=== PATIENT | female | born 1960 | race Two or more races ===

== ENCOUNTER 2016-08-27 16:15 | Emergency (ER) | payer OTHER ==
--- NOTE | 2016-08-27 16:41 | EDPHY ---
H & P Time Seen by Provider: 08/27/16 16:28 HPI/ROS: Chief complaint. Abdominal pain HPI. 55-year-old female presents emergency department with left lower quadrant abdominal pain and flank pain for 2 weeks. She was seen by her physician on Tuesday and they wanted to do a CT scan but it has not been performed yet. She had a normal urine at that point. No fever cough or shortness of breath. Pain is somewhat worse with movement but is there all the time especially with lying down at night. No fever chills. Nausea no vomiting. No diarrhea. Denies urinary symptoms. She has had her gallbladder removed. Otherwise no chronic abdominal problems ROS Constitutional. no fever/chills, no weakness Eyes. no problems with vision ENT. no sore throat, no nasal drainage Cardiovascular. no chest pain Respiratory. no shortness of breath, no cough Abdominal. Left lower quadrant abdominal pain with nausea . no problems urinating MS. no calf pain/swelling, no neck/back pain, no joint pain Skin. no rash Lymph. no swollen glands Neuro. no headache, no dizziness, no difficulty walking or with speech Past Medical/Surgical History: Cholecystectomy Social History: Single, nonsmoker, no alcohol Smoking Status: Never smoked Physical Exam: General Appearance: Alert pleasant well-developed female moderate distress vital signs are stable Eyes: Pupils equal and round no pallor or injection. ENT, Mouth: Mucous membranes are moist. Respiratory: There are no retractions, lungs are clear to auscultation. Cardiovascular: Regular rate and rhythm. Gastrointestinal: Abdomen is soft with left flank tenderness and left lower quadrant abdominal pain. No masses. Normal bowel sounds Neurological: Awake and alert, sensory and motor exams grossly normal. Skin: Warm and dry, no rashes. Musculoskeletal: Neck is supple nontender. Extremities symmetrical, full range of motion. Psychiatric: Patient is oriented X 3, there is no agitation. Constitutional: Initial Vital Signs Temperature (C) 36.8 C 08/27/16 16:24 Heart Rate 67 08/27/16 16:24 Respiratory Rate 20 08/27/16 16:24 Blood Pressure 167/69 H 08/27/16 16:24 O2 Sat (%) 97 08/27/16 16:24 O2 Delivery Mode Room Air O2 (L/minute) 2 Allergies/Adverse Reactions: No Known Allergies Allergy (Verified 08/27/16 16:24) Home Medications: Medication Instructions Recorded Hydrocodone/APAP 5/325 [[place] 1 each PO Q4-6PRN PRN #14 tab 08/27/16 5/325 (*)] Medical Decision Making - Diagnostics Imaging: CT abdomen and pelvis with IV contrast reviewed by me and discussed with Dr. Bonilla is interpreted as normal Procedures: IV normal saline. Morphine for pain. Zofran for nausea ED Course/Re-evaluation: Re-evaluation 7:15 p.m.. Patient is stable. The patient her daughters and I discussed imaging and lab results. We discussed treatment plan including criteria for return importance of follow-up and further evaluation. They expressed understanding and agreement Differential Diagnosis: I considered urinary tract infection, diverticulitis, colitis. Workup is normal including urine, laboratory, imaging studies. The exact cause of patient 's discomfort is unclear. We will treat the patient for pain. She is encouraged to return over the weekend should she be worse including fever, worsening pain, vomiting. She will follow up with her regular physician on Tuesday or Tuesday - Data Points Laboratory Results: Laboratory Results 08/27/16 17:20 08/27/16 17:20 08/27/16 08/27/16 08/27/16 17:50 17:50 17:20 WBC RBC Hgb POC Hgb 12.6 gm/dL gm/dL (12.3-15.9) Hct POC Hct 37 % % (35.5-47.5) MCV MCH MCHC RDW Plt Count MPV Neut % (Auto) Lymph % (Auto) Alfalfa % (Auto) Eos % (Auto) Baso % (Auto) Nucleat RBC Rel Count Absolute Neuts (auto) Absolute Lymphs (auto) Absolute Monos (auto) Absolute Eos (auto) Absolute Basos (auto) Absolute Nucleated RBC Immature Gran % Immature Gran # POC Sodium 143 mEq/L mEq/L (134-144) Sodium 141 mEq/L mEq/L (134-144) POC Potassium 3.5 mEq/L mEq/L (3.3-5.0) Potassium 4.0 mEq/L mEq/L (3.5-5.2) POC Chloride 108 mEq/L mEq/L (96-108) Chloride 105 mEq/L mEq/L (97-110) Carbon Dioxide 23 mEq/l mEq/l (22-31) Anion Gap 13 mEq/L mEq/L (8-16) POC BUN 18 mg/dL mg/dL (7-23) BUN 19 mg/dL mg/dL (7-23) Creatinine 0.6 mg/dL mg/dL (0.6-1.0) POC Creatinine 0.6 mg/dL mg/dL (0.6-1.2) Estimated GFR > 60 Glucose 93 mg/dL mg/dL (70-100) POC Glucose 91 mg/dL mg/dL (70-100) Calcium 9.6 mg/dL mg/dL (8.5-10.4) Urine Color COLORLESS Urine Appearance CLEAR Urine pH 6.0 (5.0-7.5) Ur Specific [place] 1.003 (1.002-1.030) Urine Protein NEGATIVE (NEGATIVE) Urine Ketones NEGATIVE (NEGATIVE) Urine Blood NEGATIVE (NEGATIVE) Urine Nitrate NEGATIVE (NEGATIVE) Urine Bilirubin NEGATIVE (NEGATIVE) Urine Urobilinogen NEGATIVE EU EU (0.2-1.0) Ur Leukocyte Esterase NEGATIVE (NEGATIVE) Ur Culture Indicated? NOT INDICATED (NI) Urine Glucose NEGATIVE (NEGATIVE) 08/27/16 17:20 WBC 6.49 10^3/uL 10^3/uL (3.80-9.50) RBC 4.88 10^6/uL 10^6/uL (4.18-5.33) Hgb 13.9 g/dL g/dL (12.6-16.3) POC Hgb Hct 42.1 % % (38.0-47.0) POC Hct MCV 86.3 fL fL (81.5-99.8) MCH 28.5 pg pg (27.9-34.1) MCHC 33.0 g/dL g/dL (32.4-36.7) RDW 13.7 % % (11.5-15.2) Plt Count 220 10^3/uL 10^3/uL (150-400) MPV 12.4 fL H fL (8.7-11.7) Neut % (Auto) 47.1 % % (39.3-74.2) Lymph % (Auto) 44.4 % % (15.0-45.0) Alfalfa % (Auto) 6.0 % % (4.5-13.0) Eos % (Auto) 1.5 % % (0.6-7.6) Baso % (Auto) 0.8 % % (0.3-1.7) Nucleat RBC Rel Count 0.0 % % (0.0-0.2) Absolute Neuts (auto) 3.06 10^3/uL 10^3/uL (1.70-6.50) Absolute Lymphs (auto) 2.88 10^3/uL 10^3/uL (1.00-3.00) Absolute Monos (auto) 0.39 10^3/uL 10^3/uL (0.30-0.80) Absolute Eos (auto) 0.10 10^3/uL 10^3/uL (0.03-0.40) Absolute Basos (auto) 0.05 10^3/uL 10^3/uL (0.02-0.10) Absolute Nucleated RBC 0.00 10^3/uL 10^3/uL (0-0.01) Immature Gran % 0.2 % % (0.0-1.1) Immature Gran # 0.01 10^3/uL 10^3/uL (0.00-0.10) POC Sodium Sodium POC Potassium Potassium POC Chloride Chloride Carbon Dioxide Anion Gap POC BUN BUN Creatinine POC Creatinine Estimated GFR Glucose POC Glucose Calcium Urine Color Urine Appearance Urine pH Ur Specific [place] Urine Protein Urine Ketones Urine Blood Urine Nitrate Urine Bilirubin Urine Urobilinogen Ur Leukocyte Esterase Ur Culture Indicated? Urine Glucose Medications Given: Discontinued Medications Sodium Chloride (Ns) 1,000 mls @ 0 mls/hr IV ONCE ONE PRN Reason: Wide Open Stop: 08/27/16 17:07 Last Admin: 08/27/16 17:25 Dose: 1,000 mls Morphine Sulfate (Morphine) 6 mg IVP EDNOW ONE Stop: 08/27/16 17:07 Last Admin: 08/27/16 17:25 Dose: 6 mg Ondansetron HCl (Zofran) 4 mg IVP EDNOW ONE Stop: 08/27/16 17:07 Last Admin: 08/27/16 17:25 Dose: 4 mg Point of Care Test Results: 08/27/16 17:50 POC Sodium 143 POC Potassium 3.5 POC Chloride 108 POC BUN 18 POC Creatinine 0.6 POC Glucose 91 Departure - Departure Disposition: Home, Routine, Self-Care Clinical Impression: Abdominal pain Qualifiers: Abdominal location: left lower quadrant Qualified Code(s): R10.32 - Left lower quadrant pain Condition: Good Instructions: Abdominal Pain (ED) Additional Instructions: Regular meals. Drink plenty of fluids and stay hydrated. Hydrocodone as needed for discomfort. Return over the weekend for worsening pain, fever, vomiting. Recheck Tuesday or Tuesday at [facility] for further evaluation Referrals: [facility] [Other] - 2-3 days without fail Prescriptions: Hydrocodone/APAP 5/325 [[place] 5/325 (*)] 1 each PO Q4-6PRN PRN #14 tab PRN Reason: Pain, Moderate
[2016-08-27] MEDS ORDERED: NS 1,000 ML IV ONE (17:06)
[2016-08-27] MEDS ORDERED: ONDANSETRON 4 MG/2 ML VIAL IVP ONE (17:06)
[2016-08-27 17:29] VITALS: O2SAT 96
[2016-08-27 17:46] LABS: % IMMATURE GRANULYOCYTES 0.2 % (0.0-1.1); ABSOLUTE IMMATURE GRANULOCYTES 0.01 10^3/uL (0.00-0.10); ADD DIFF? NO; ADD MORPH? NO; ADD SCAN? NO; ATYPICAL LYMPHOCYTE FLAG 0 (0-99); FRAGMENT RBC FLAG 0 (0-99); HEMATOCRIT 42.1 % (38.0-47.0); HEMOGLOBIN 13.9 g/dL (12.6-16.3); LEFT SHIFT FLG 0 (0-99); LIPEMIA HEMOLYSIS FLAG 80 (0-99); MEAN CELL HEMOGLOBIN 28.5 pg (27.9-34.1); MEAN CELL VOLUME 86.3 fL (81.5-99.8); MEAN PLATELET VOLUME 12.4 fL (8.7-11.7); PLATELET CLUMPS FLAG 0 (0-99); PLATELET COUNT 220 10^3/uL (150-400); RED BLOOD CELL COUNT 4.88 10^6/uL (4.18-5.33); RED CELL DISTRIBUTION WIDTH 13.7 % (11.5-15.2)
[2016-08-27 17:57] LABS: ANION GAP 13 mEq/L (8-16); CALCIUM 9.6 mg/dL (8.5-10.4); CARBON DIOXIDE 23 mEq/l (22-31); CHLORIDE 105 mEq/L (97-110); CREATININE 0.6 mg/dL (0.6-1.0); GLOMERULAR FILTRATION RATE > 60; GLUCOSE 93 mg/dL (70-100); SODIUM 141 mEq/L (134-144)
[2016-08-27] MEDS ORDERED: IOPAMIDOL (ISOVUE-300) 100 ML BTL IV ONE (18:13)
[2016-08-27 18:23] LABS: COLOR COLORLESS; LEUKOCYTE ESTERASE,URINE NEGATIVE (NEGATIVE); NITRITE,URINE NEGATIVE (NEGATIVE)
[2016-08-27 19:42] VITALS: BP 139/82; PULSE 69; RESP 16; TEMP 97.5
== END 2016-08-27 19:42 | disposition home or self-care (01) ==
DX: R10.32 Left lower quadrant pain (principal); Z90.49 Acquired absence of other specified parts of digestive tract
CPT/HCPCS: 82947-QW; J2405; Q9967

== ENCOUNTER 2017-08-01 10:07 | Emergency (ER) | payer OTHER ==
[2017-08-01] MEDS ORDERED: OXYCODONE/APAP 5/325 TAB ONE (10:40)
[2017-08-01] MEDS ORDERED: OXYCODONE/APAP 5/325 TAB PO ONE (10:41)
--- NOTE | 2017-08-01 10:42 | EDPHY ---
H & P Time Seen by Provider: 08/01/17 10:19 HPI/ROS: CHIEF COMPLAINT: Left ankle pain HISTORY OF PRESENT ILLNESS: 56-year-old female arrives via private vehicle complaining of acute left ankle pain after she slipped on ice this morning, complaining of lateral malleolus pain, unable to bear weight. Intact skin. PHYSICAL EXAM (Prior to examination, patient consented to physical exam, hands were washed and my usual and customary physical exam procedures followed) 1) GENERAL: Well-developed, well-nourished, alert and oriented. Appears to be in no acute distress. 2) HEAD: Normocephalic 3) HEENT: Pupils equal, round, reactive to light bilaterally. 4) LUNGS: Breathing comfortably. 5) MUSCULOSKELETAL: Soft tissue swelling, tender to palpation lateral malleolus. proximal tibia and fibula nontender .5th MT nontender negative Abbasi test, compartments soft 6) SKIN: Intact 7) VASCULAR: DP,PT pulses and cap refill present and brisk DIFFERENTIAL DIAGNOSIS: in no particular order including but not limited to fracture, sprain, compartment syndrome Procedure: Crutches indications for crutch use discussed with patient. Patient fitted for crutches by ER staff. Observed ambulating with crutches. I think the patient has the capacity to safely use crutches. Usual and customary crutch walking precautions provided Procedure: Splint A [place] boot splint was applied by ER phlebotomy technician. After application of the splint I returned and re-examined the patient. The splint was adequately immobilizing the joint and distal to the splint the patient's circulation and sensation were intact. Patient shows no signs of compartment syndrome. Was given orthopedic precautions. Smoking Status: Never smoked Constitutional: Initial Vital Signs Temperature (C) 37.0 C 08/01/17 10:15 Heart Rate 81 08/01/17 10:15 Respiratory Rate 18 08/01/17 10:15 Blood Pressure 168/90 H 08/01/17 10:15 O2 Sat (%) 97 08/01/17 10:15 O2 Delivery Mode Room Air Allergies/Adverse Reactions: No Known Allergies Allergy (Verified 08/27/16 16:24) Home Medications: Medication Instructions Recorded Hydrocodone/APAP 5/325 [[place] 1 tab PO Q6 PRN #7 tab 08/01/17 5/325 (RX)] Methocarbamol 08/01/17 MDM/Departure - [facility] Imaging Results: Imaging Impressions Ankle X-Ray 08/01/17 10:22 Impression: Acute nondisplaced distal fibular fracture. No derangement of the ankle mortise. Images were reviewed by myself Medications Given: Discontinued Medications Oxycodone/Acetaminophen (Percocet 5/325) 1 tab PO EDNOW ONE Stop: 08/01/17 10:42 Last Admin: 08/01/17 10:42 Dose: 1 tab ED Course/Re-evaluation: The patient was re-evaluated with serial examinations. Discussed her x-ray results showing a nondisplaced lateral malleolus fracture. She has been splinted with [place] boot, given crutches and crutch walking precautions and recommend orthopedic follow-up. She is neurovascular intact with no evidence of compartment syndrome at this time however she has been informed of the potential risks and red flag signs and symptoms to be on the look out for. She feels comfortable being discharged. She will be discharged with analgesia, work note and orthopedic referral information. She feels comfortable being discharged. Care of patient under supervision of secondary supervising physician Dr Jhonny Hunyh. - Depart Disposition: Home, Routine, Self-Care Clinical Impression: Fractured lateral malleolus Qualifiers: Encounter type: initial encounter Fracture type: closed Fracture alignment: nondisplaced Laterality: left Qualified Code(s): S82.65XA - Nondisplaced fracture of lateral malleolus of left fibula, initial encounter for closed fracture Condition: Good Instructions: Ankle Fracture (ED) Additional Instructions: Return to the ER immediately if you experience discoloration, have worsening pain, numbness, tingling, or any other symptoms that concern you. If you received x-rays in the emergency department today, be advised, that ligamentous , tendon, muscular, and other non-bony injury cannot be fully ruled out. Try to keep your affected extremity elevated above the level of your chest, and keep cold packs on the affected area, for the next 48 hours. Regresar a la vanessa de Emergencia inmediatamente si desarollas discoloracion, empeoramiento de dolor, entumido, hormigueo, u otros sintomas que te preocupan. Si recibistes prudencio-X en la vanessa de Emergencia hoy, ser reji informado, que ligamentos, tendones, musculos, u otras lastimaduras non-hueso no pueden ser completamente eliminadas. Tratar de tener cespedes extremidad afectada elevada mas arriba de tu pecho, y mantener bolsa de hielo a la area afectada para las proximaaas 48 horas. Stand Alone Forms: Work Excuse Prescriptions: Hydrocodone/APAP 5/325 [[place] 5/325 (RX)] 1 tab PO Q6 PRN #7 tab PRN Reason: Pain, Severe Referrals: Travon Ramirez MD [Medical Doctor] - As per Instructions
[2017-08-01 11:58] VITALS: BP 158/88; PULSE 78; RESP 16; TEMP 98.6; O2SAT 96
== END 2017-08-01 11:58 | disposition home or self-care (01) ==
DX: S82.65XA Nondisplaced fracture of lateral malleolus of left fibula, initial encounter for closed fracture (principal); W00.0XXA Fall on same level due to ice and snow, initial encounter
CPT/HCPCS: L4386